=== PATIENT | female | born 1965 | race Native Hawaiian/Other Pacific Islander ===

== ENCOUNTER 2018-04-24 09:48 | Day surgery (SDC) | payer OTHER, SELFPAY ==
--- NOTE | 2018-04-24 07:58 | P.HP_ITS ---
History of Present Illness Date Patient Seen: 04/24/18 Chief complaint: [id number] SCREENING COLONOSCOPY Narrative: 53-year-old female with a history diabetes here for average risk colon cancer screening. No active GI issues at present Patient History Social History household members: spouse Meds Home Medications Medication Instructions Recorded Confirmed Type atorvastatin 20 mg PO DAILY 04/24/18 04/24/18 History metformin 500 mg PO QPM 04/24/18 04/24/18 History Allergies Allergy/AdvReac Type Severity Reaction Status Date / Time No Known Drug Allergies Allergy Verified 04/24/18 10:07 Exam Narrative Exam Narrative: General: Patient is well developed, not in apparent distress Cardiovascular: Regular rate and rhythm, no murmurs, rubs, or gallops; no evidence of edema; no palpable abdominal aortic aneurysm Gastrointestinal: Normoactive bowel sounds, soft, nontender, nondistended, no rebound tenderness, no hepatosplenomegaly, no evidence of hernia Assessment & Plan Assessment & Plan narrative: 53-year-old female with history of type 2 diabetes who is here for colon cancer screening. She is at average risk. Regarding the procedure(s), the risks and potential complications, benefits, and alternatives (including not doing the procedure) were discussed with the patient. The risks include but are not limited to bleeding, splenic injury, i nfection, perforation which may require surgical intervention, missed lesions, and adverse reactions to sedative medicines. After a question and answer period, the patient agreed to proceed with the procedure(s) and gives informed consent.
[2018-04-24 10:11] VITALS: BP 150/80; PULSE 81; RESP 16; TEMP 36.3; O2SAT 100; BMI 22.4
[2018-04-24] MEDS: SODIUM CHLORIDE 0.9% 1,000 ML 70 ML IV (10:24)
--- NOTE | 2018-04-24 11:12 | P.OP.ENDO_ITS ---
Operative Date/Time/Diagnoses Date of procedure: 04/24/18 Procedure Notes Procedure in detail: Surgeon: Harsh Corbett MD Procedure: Colonoscopy Preoperative diagnosis: Average risk colon cancer screening Postoperative diagnosis: Grade 2 internal hemorrhoids, hypertrophied anal papil lae Medications: Conscious sedation using 5 mg IV of Midazolam and 100 mcg IV of Fentanyl Preanesthesia Assessment An H and P was performed/updated and the Px?s ASA class is 2. The procedure was discussed in detail with the patient. The potential risks and complications including infection, bleeding, missed lesions, perforation, need for surgery in case of perforation, prolonged hospital stay, and were explained. A brief question and answer period was allotted and once all questions were answered, informed consent was obtained. The patient was brought back to the procedure room and placed on standard monitoring. The patient?s vital signs were monitored continuously throughout the entire procedure. Prior to starting, a timeout was performed to confirm the patient?s identity, allergies, medications, and procedure. Procedure in detail The patient was placed in left lateral decubitus position and once adequate sedation was obtained a DAY was performed. The digital rectal examination did not reveal any palpable lesions. The tip of the colonoscope was placed in the anal canal and advanced without difficulty all the way to the cecum which was identified by the appendiceal orifice and the ileocecal valve. Careful examination of all sinclair of the colon was performed with irrigation of any residual stool. The colonic mucosa appeared normal. Retroflexion was performed in the rectum which revealed hypertrophied anal papillae and grade 2 internal hemorrhoids. The patient tolerated the procedure well and will be brought back to the recovery area to be discharged once criteria are met. The prep was judged to be good and adequate to identify polyps less than 5 mm. The withdrawal time was 8 min. The total physician intraservice time was 15 min. Complications There were no complications and estimated blood loss was zero. Recommendations: Resume previous diet Continue outPx medications Repeat colonoscopy in 10 years for screening An emergency contact number was given to the patient for any complications related to the procedure
[2018-04-24] MEDS: MIDAZOLAM 5 MG/5 ML VIAL IV (11:17)
[2018-04-24] MEDS: fentaNYL 250 MCG/5 ML INJ IV (11:17)
--- NOTE | 2018-04-24 11:26 | PM.DS.1 ---
History of Present Illness Chief complaint: [id number] SCREENING COLONOSCOPY Narrative: 53-year-old female with a history diabetes here for average risk colon cancer screening. No active GI issues at present Discharge Providers Discharge Date: 04/24/18 Primary care physician: Peg Escalante DO Discharge provider: Harsh Corbett MD Exam Vital Signs (past 8 hours): - 04/24/18 10:11 Temperature 97.3 F L Pulse Rate 81 Respiratory Rate 16 Blood Pressure 150/80 H Pulse Oximetry 100 Oxygen Delivery Method Room Air Narrative Exam Narrative: General: Patient is well developed, not in apparent distress Cardiovascular: Regular rate and rhythm, no murmurs, rubs, or gallops; no evidence of edema; no palpable abdominal aortic aneurysm Gastrointestinal: Normoactive bowel sounds, soft, nontender, nondistended, no rebound tenderness, no hepatosplenomegaly, no evidence of hernia Discharge Plan Discharge Plan Patient Disposition: Home Discharge Med Rec/Prescriptions Prescriptions: Continued atorvastatin 20 mg Tablet 20 mg PO DAILY RF: 0 metformin 500 mg Tablet Extended Release 24hr 500 mg PO QPM RF: 0 Follow up/Referrals: Peg Escalante DO [Primary Care Provider] - Discharge Orders: Discharge (Order); Ordered 04/24/18 Ordered By: Harsh Corbett Provider Discharge Instructions Diet: Diet as Tolerated Visit Report/Discharge Packet Stand Alone Forms: Colonoscopy Result: Med Grp Discharge Data Primary Care Provider: Peg Escalante Attending Provider: Harsh Corbett
[2018-04-24 11:27] VITALS: BP 100/66; PULSE 67; RESP 10; O2SAT 98
[2018-04-24 11:32] VITALS: BP 94/63; PULSE 66; RESP 12; O2SAT 97
[2018-04-24 11:37] VITALS: BP 97/59; PULSE 64; RESP 11; O2SAT 95
[2018-04-24 11:45] VITALS: BP 111/63; PULSE 67; RESP 16; TEMP 36.6; O2SAT 99
== END 2018-04-24 12:08 | disposition home or self-care (01) ==
PROVIDERS: PCP Family Medicine; Visit Provider Internal Medicine Gastroenterology
PROC: 0DJD8ZZ Inspection of Lower Intestinal Tract, Via Natural or Artificial Opening Endoscopic (ICD-10-PCS; CPT 45378; principal; 2018-04-24 11:00)
DX: Z12.11 Encounter for screening for malignant neoplasm of colon (principal); K64.1 Second degree hemorrhoids; K62.89 Other specified diseases of anus and rectum; E11.9 Type 2 diabetes mellitus without complications; Z79.84 Long term (current) use of oral hypoglycemic drugs
CPT/HCPCS: 45378; J2250; J3010